=== PATIENT | female | born 1980 ===

== ENCOUNTER 2016-05-25 19:20 | Observation (INO) | payer MEDICAID, OTHER ==
[2016-05-25 19:20] VITALS: BMI 21.4
[2016-05-25 19:24] VITALS: BP 135/92; PULSE 85; RESP 16; TEMP 97.9; O2SAT 100
--- NOTE | 2016-05-25 19:51 | ED PDOC ---
HPI: Psych/Substance Abuse Time Seen by Provider: 05/25/16 19:30 Chief Complaint (Nursing): Substance Abuse Chief Complaint (Provider): substance abuse ED Caveat: Acuity of Condition Additional Complaint(s): 35yo F found on [address] wandering around falling hitting head and bystanders called police. Pt suspected to be under the influence . pt with unstable gait, very slurred speech and somnolent. no previous hx of pt according to police. bystanders states they saw her fall hit her head a couple of times and ribs. Past Medical History Reviewed: Historical Data, Nursing Documentation, Vital Signs Vital Signs: Last Vital Signs Temp 97.9 F 05/25/16 19:22 Pulse 85 05/25/16 19:22 Resp 16 05/25/16 19:22 BP 135/92 H 05/25/16 19:22 Pulse Ox 100 05/25/16 19:22 - Medical History PMH: Anemia, Anxiety, Depression Denies: Diabetes, Hepatitis, HIV, HTN, Seizures, Sexually Transmitted Disease - Family History Family History: States: Unknown Family Hx - Immunization History Hx Tetanus Toxoid Vaccination: No Hx Influenza Vaccination: No Hx Pneumococcal Vaccination: No - Home Medications Home Medications: Ambulatory Orders Medication Instructions Recorded Alprazolam [Xanax] 4 mg PO DAILY 12/12/15 oxyCODONE/Acetaminophen [Percocet 1 tab PO TID PRN 12/12/15 5/325 mg Tab] - Allergies Allergies/Adverse Reactions: Allergies Allergy/AdvReac Type Severity Reaction Status Date / Time No Known Allergies Allergy Verified 12/15/15 17:35 Review of Systems Review Of Systems: ROS cannot be obtained secondary to pt's inabilty to answer questions. Physical Exam - Reviewed Nursing Documentation Reviewed: Yes Vital Signs Reviewed: Yes - Physical Exam Appears: Negative for: Non-toxic (pt inotixated ) Head Exam: Positive for: ATRAUMATIC, NORMAL INSPECTION, NORMOCEPHALIC Skin: Positive for: Warm, Pallor Eye Exam: Positive for: EOMI. Negative for: PERRL (pinpoint pupils), Periorbital swelling, Periorbital tenderness Cardiovascular/Chest: Positive for: Regular Rate, Rhythm Respiratory: Positive for: CNT, Normal Breath Sounds Neurologic/Psych: Positive for: Other (very somnoloent with slurred speech. ). 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 due to suspected head injury will CT head and will rib xray. sister contacted and will come to ED Medical Decision Making Medical Decision Making: CT scan: FINDINGS: Brain: No intracranial hemorrhage. No mass. No edema. Ventricles: No hydrocephalus. Bones/joints: No acute fracture. Soft tissues: Unremarkable. Sinuses: Moderate mucosal thickening of RIGHT maxillary sinus. Mild focal mucosal thickening of RIGHT sphenoid sinus. Scattered minimal mucosal thickening of ethmoid sinuses. Mastoid air cells: No mastoid effusion. Orbits: Unremarkable as visualized. IMPRESSION: 1. No intracranial hemorrhage. 2. Sinus disease. 3. Incidental/non-acute findings are described above. Thank you for allowing us to participate in the care of your patient. Dictated and Authenticated by: Jacobo Olivo MD 05/25/2016 11:02 PM Eastern Time ([place] & [place]) 23:43Pt still somnolent. pt will require Ed observation until clinically sober. Disposition - Clinical Impression Clinical Impression: Drug abuse - Patient ED Disposition Is Patient to be Admitted: Transfer of Care - Disposition Disposition Time: 00:00 Condition: STABLE Patient Signed Over To: Porsche Hoang Handoff Comments: sobriety
[2016-05-25 20:20] LABS: BASO % 0.4 % (0.0-2.0); EOS # 0.1 K/uL (0.0-0.7); EOS % 1.1 % (0.0-4.0); HEMATOCRIT 39.4 % (34.0-47.0); LYMPH # 3.2 K/uL (1.0-4.3); LYMPH % 33.8 % (20.0-40.0); MEAN CELL VOLUME 93.8 fl (81.0-99.0); MEAN CORPUSCULAR HEMOGLOBIN 31.8 pg (27.0-31.0); MEAN CORPUSCULAR HGB CONC 33.9 g/dL (33.0-37.0); MEAN PLATELET VOLUME 7.1 fl (7.2-11.7); NEUT % 53.7 % (50.0-75.0); NRBC % 0.1 % (0.0-0.0); RED CELL DISTRIBUTION WIDTH 13.2 % (11.5-14.5); WHITE BLOOD COUNT 9.4 K/uL (4.8-10.8)
[2016-05-25 20:29] LABS: ALB/GLOB RATIO 1.2 (1.0-2.1); ALCOHOL SERUM < 10 mg/dl (0-10); ALKALINE PHOSPHATASE 64 U/L (38-126); ALT/SGPT 30 U/L (9-52); AST/SGOT 24 U/L (14-36); BILIRUBIN,TOTAL 0.8 mg/dl (0.2-1.3); BLOOD UREA NITROGEN 17 mg/dl (7-17); CALCIUM 9.4 mg/dL (8.4-10.2); CARBON DIOXIDE 24 mmol/L (22-30); CHLORIDE 104 mmol/L (98-107); GFR AFRICAN-AMERICAN > 60; GLUCOSE,RANDOM 80 mg/dL (65-105); POTASSIUM 3.7 MMOL/L (3.6-5.0); SODIUM 143 mmol/l (132-148); TOTAL PROTEIN 7.8 G/DL (6.3-8.2)
--- NOTE | 2016-05-25 23:02 | CT ---
EXAM: CT Head Without Intravenous Contrast CLINICAL HISTORY: 35 years old, female; Injury or trauma; Injury Head injury with substance abuse; Initial encounter; Blunt trauma (contusions or hematomas) TECHNIQUE: Axial computed tomography images of the head/brain without intravenous contrast. This CT exam was performed using one or more of the following dose reduction techniques: automated exposure control, adjustment of the mA and/or kV according to patient size, and/or use of iterative reconstruction technique. Coronal and sagittal reformatted images were created and reviewed. COMPARISON: No relevant prior studies available. FINDINGS: Brain: No intracranial hemorrhage. No mass. No edema. Ventricles: No hydrocephalus. Bones/joints: No acute fracture. Soft tissues: Unremarkable. Sinuses: Moderate mucosal thickening of RIGHT maxillary sinus. Mild focal mucosal thickening of RIGHT sphenoid sinus. Scattered minimal mucosal thickening of ethmoid sinuses. Mastoid air cells: No mastoid effusion. Orbits: Unremarkable as visualized. IMPRESSION: 1. No intracranial hemorrhage. 2. Sinus disease. 3. Incidental/non-acute findings are described above.
--- NOTE | 2016-05-26 03:09 | ED PDOC ---
- Laboratory Results Result Diagrams: 05/25/16 20:14 05/25/16 20:14 - ECG Interpretation Of Abn EKG: Rib x-ray normal O2 Sat by Pulse Oximetry: 100 Pulse Ox Interpretation: Normal Disposition - Clinical Impression Clinical Impression: Drug abuse - POA Present On Arrival: None - Disposition Disposition: Routine/Home Disposition Time: 03:08 Condition: GOOD
--- NOTE | 2016-05-26 11:07 | RAD ---
PROCEDURE: Radiographs of the chest and bilateral ribs HISTORY: rib injury COMPARISON: None available. TECHNIQUE: Frontal radiograph of the chest and multiple oblique radiographs of the bilateral ribs were obtained. FINDINGS: RIGHT RIBS: Right 10th posterior lateral rib fracture deformity. LEFT RIBS: No appreciable displaced fracture. LUNGS: No focal consolidation. Please note that chest x-ray has limited sensitivity for the detection of pulmonary masses. PLEURA: No significant pleural effusion. No definite pneumothorax. CARDIOVASCULAR: Heart size appears within normal limits. OTHER FINDINGS: Scoliosis. IMPRESSION: Right 10th posterior lateral rib fracture deformity. Study marked for PA review.
== END 2016-05-26 05:45 | disposition home or self-care (01) ==
LOC: H.ER 19:20 → H.EROBSV 23:51
PROVIDERS: ADMIT Emergency Medicine; ATTEND Emergency Medicine
DX: S22.39XA Fracture of one rib, unspecified side, initial encounter for closed fracture (principal)

== ENCOUNTER 2016-05-28 16:17 | Emergency (ER) | payer MEDICAID ==
[2016-05-28 16:18] VITALS: BMI 21.4
[2016-05-28 16:28] VITALS: BP 126/75; PULSE 97; RESP 16; TEMP 98.2; O2SAT 100
--- NOTE | 2016-05-28 16:56 | ED PDOC ---
HPI: General Adult Time Seen by Provider: 05/28/16 16:31 Chief Complaint (Nursing): Rib Injury Chief Complaint (Provider): rib pain History Per: Patient Additional Complaint(s): Patient presents to ED with bilateral rib pain. She was seen in on 05/25/16 for substance abuse and had x-rays of ribs completed. Patient states she received a call today from ED regarding test results so she came back to ED to be seen today. Patient states she has not been taking any meds for pain relief. She denies chest pain, shortness of breath or dyspnea on exertion. Past Medical History Reviewed: Historical Data Vital Signs: Last Vital Signs Temp 98.2 F 05/28/16 16:23 Pulse 97 H 05/28/16 16:23 Resp 16 05/28/16 16:23 BP 126/75 05/28/16 16:23 Pulse Ox 100 05/28/16 17:10 - Medical History PMH: Anemia, Anxiety, Depression - Surgical History Surgical History: No Surg Hx - Family History Family History: States: No Known Family Hx - Living Arrangements Living Arrangements: With Family - Social History Current smoker - smoking cessation education provided: No Alcohol: None Drugs: Denies - Home Medications Home Medications: Ambulatory Orders Medication Instructions Recorded Alprazolam [Xanax] 4 mg PO DAILY 12/12/15 oxyCODONE/Acetaminophen [Percocet 1 tab PO TID PRN 12/12/15 5/325 mg Tab] - Allergies Allergies/Adverse Reactions: Allergies Allergy/AdvReac Type Severity Reaction Status Date / Time No Known Allergies Allergy Verified 12/15/15 17:35 Review of Systems ROS Statement: Except As Marked, All Systems Reviewed And Found Negative Constitutional: Negative for: Fever Cardiovascular: Negative for: Chest Pain Gastrointestinal: Negative for: Nausea, Vomiting Musculoskeletal: Positive for: Other (bilateral rib pain) Physical Exam - Reviewed Nursing Documentation Reviewed: Yes Vital Signs Reviewed: Yes - Physical Exam Appears: Positive for: Well, Non-toxic, No Acute Distress Head Exam: Positive for: ATRAUMATIC, NORMAL INSPECTION Skin: Negative for: Rash Eye Exam: Positive for: Normal appearance, EOMI, PERRL Cardiovascular/Chest: Positive for: Regular Rate, Rhythm, Other (tenderness to right and left lateral chest collins with no ecchymosis or STS) Respiratory: Positive for: Normal Breath Sounds Gastrointestinal/Abdominal: Positive for: Normal Exam, Soft. Negative for: Tenderness Extremity: Positive for: Normal ROM. 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 Patient was asked to provide urine specimen but she eloped from ED. Disposition - Clinical Impression Clinical Impression: Rib pain - Patient ED Disposition Is Patient to be Admitted: No - Disposition Disposition: Eloped Disposition Time: 17:17 Condition: UNKNOWN
== END 2016-05-28 16:36 | disposition left against medical advice (07) ==
LOC: H.ER 16:17
DX: R07.81 Pleurodynia (principal)